=== PATIENT | male | born 1995 | race Two or more races ===

== ENCOUNTER 2019-01-27 20:45 | Emergency (ER) | payer OTHER ==
[~2019-01-27] VITALS: Ht 165.1 cm; Wt 68.0 kg
--- NOTE | 2019-01-27 21:06 | Emergency Room Report ---
History of Present Illness General Chief Complaint: General Complaint Source: Patient Present Illness HPI 23-year-old male who presents after increased discomfort to his lower lip. Patient reports having some pain to the right side of his jaw. He reportedly been struck to the lip with an elbow while playing basketball approximately 2 hours prior to arrival. He denies any loss of consciousness. He denies any other locations of pain. He reports having Tetanus vaccine. Allergies: Coded Allergies: No Known Allergies (Unverified , 01/27/19) Patient History Reviewed Nursing Documentation: PMH: Agreed; PSxH: Agreed Nursing Documentation-PMH Past Medical History: No Stated History Review of Systems All Other Systems: negative except mentioned in HPI Physical Exam Vital Signs Date Time Temp Pulse Resp B/P (MAP) Pulse Ox O2 Delivery O2 Flow Rate FiO2 01/27/19 20:50 98.8 71 18 114/75 (88) 99 Room Air General Appearance: well appearing, no apparent distress, alert, GCS 15, non- toxic Head: normocephalic, atraumatic ENT: hearing grossly normal, normal voice, other - lip laceration , no malocclusion Neck: full range of motion, supple Respiratory: no respiratory distress, speaking full sentences Cardiovascular #1: normal inspection Gastrointestinal: normal inspection Musculoskeletal: no calf tenderness Neurologic: normal gait Psychiatric: mood/affect normal Skin: no rash Procedures Laceration/Wound Repair Laceration/Wound Repair : Wound Location: face Wound's Depth, Shape: superficial Wound Length (cm): 1 Wound Explored: clean Irrigated w/ Saline (ccs): 30 Anesthesia: Lidocaine w/ Epi Volume Anesthetic (ccs): 3 Wound Debrided: minimal Wound Repaired With: sutures Suture Size/Type: 5:0 Number of Sutures: 4 Layer Closure?: No Sterile Dressing Applied?: Yes Patient Tolerated: Well Complications: None Medical Decision Making Diagnostic Impression: Primary Impression: Lip laceration ER Course Patient presented for laceration. Differential diagnosis include was not limited to fracture, foreign body, vascular injury among others. Patient has a benign exam and does not appear to require any further imaging or laboratory testing at this time. Patient does not appear to have any evidence of infection. He was noted to have no retained foreign body. Laceration was irrigated and closed with absorbable suture. Patient was advised wound care. he was advised wound recheck in 3 days. He is advised to return if any concerns Last Vital Signs Date Time Temp Pulse Resp B/P (MAP) Pulse Ox O2 Delivery O2 Flow Rate FiO2 01/27/19 20:50 98.8 71 18 114/75 (88) 99 Room Air Status: improved Scripts Ibuprofen (Ibuprofen) 400 Mg Tablet 400 MG PO EVERY 8 HOURS, #30 TAB Prov: Tao Marr MD 01/27/19 Tao Marr MD Jan 27, 2019 21:06
--- NOTE | 2019-01-27 21:10 | NUR ---
ED Nurse Note: Recieved pt from home, here with c/o laceration - puncture to left lip, was elbowed during game of basketball, mild bleeding and swelling noted, no k.o or other injuries, pain at 5/10, pt ambulatory.
[2019-01-27] MEDS ORDERED: Lidocaine 2% Visc 15ml soln ORAL ONE (21:15)
[2019-01-27] MEDS ORDERED: Lidocaine 1% 10mg/ml/EPI 0.01mg/ml 20ml INJ ONE (21:15)
[2019-01-27] MEDS ORDERED: IBUPROFEN400 M1 PO (21:58)
[2019-01-27 22:40] VITALS: BP 121/68
[2019-01-27 22:45] VITALS: BP 121/68
--- NOTE | 2019-01-27 22:45 | NUR ---
ER DISCHARGE NOTE: Patient is cleared to be discharged per ERMD, pt is aox4, on room air, with stable vital signs. pt was given dc and prescription instructions, pt was able to verbalize understanding, pt id band removed without complications. pt is able to ambulate with steady gait. pt took all belongings.
== END 2019-01-27 22:45 | disposition home or self-care (01) ==
LOC: EMR 21:58
DX: S01.511A Laceration without foreign body of lip, initial encounter (principal); Y93.67 Activity, basketball; Y92.9 Unspecified place or not applicable
CPT/HCPCS: 12011; 99283; Z7502